=== PATIENT | female | born 1980 | race Caucasian/White ===

== ENCOUNTER 2017-04-16 12:11 | Emergency (ER) | payer MEDICAID ==
[2017-04-16 12:23] VITALS: BP 140/82
[2017-04-16] MEDS ORDERED: Ketorolac 60 MG/2 ML SDV IM ONE (12:47)
--- NOTE | 2017-04-16 12:58 | EDM.PDOC ---
ED HPI GENERAL MEDICAL PROBLEM - General Chief Complaint: Back Pain or Injury Stated Complaint: BACK PAIN Time Seen by Provider: 04/16/17 12:34 Source of Information: Reports: Patient History Limitations: Reports: No Limitations - History of Present Illness INITIAL COMMENTS - FREE TEXT/NARRATIVE: Patient is a 36-year-old female who presents to the ED complaining of upper back discomfort. States she was attempting to move a heavy bed and developed muscle pain with the strenuous activity. Over the course of the weekend discomfort has worsened. She has been utilizing BenGay, Tylenol, hot showers, and Aleve with minimal relief. Patient states today while at work with bending over, twisting, moving, and lifting pain has worsened. Pain is localized with no radiation. She has no history of back injury. She offers no additional complaints. 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 Denies: Neck Pain Neurological: Denies: Headache, Numbness, Tingling ED EXAM, UPPER BACK/NECK PAIN - Physical Exam Exam: See Below Exam Limited By: No Limitations General Appearance: Alert, WD/WN, No Apparent Distress Ears Exam: Hearing Grossly Normal Nose Exam: Normal Inspection Throat/Mouth Exam: Normal Voice, No Airway Compromise Head Exam: Atraumatic, Normocephalic Neck Exam: Non-Tender, Full Range of Motion, Normal Alignment, Normal Inspection Cardiovascular/Respiratory: Regular Rate, Rhythm, No M/R/G, Normal Peripheral Pulses, Normal Breath Sounds, No Respiratory Distress Back Exam: Normal Inspection, Full Range of Motion, Paraspinal Tenderness ( thoracic spine bilaterally, muscles are tense painful with palpation. no swelling, ecchymosis, or asymetry noted. ). 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, No Motor/Sensory Deficits, Normal Mood/ Affect, Oriented x 3 Psychiatric: Normal Affect, Normal Mood Skin Exam: Normal Color, Warm/Dry Course - Vital Signs Last Recorded V/S: Last Vital Signs Temp 98.1 F 04/16/17 12:22 Pulse 129 H 04/16/17 12:22 Resp 20 04/16/17 12:22 BP 140/82 04/16/17 12:22 Pulse Ox 99 04/16/17 12:22 - Orders/Labs/Meds Meds: Medications Discontinued Medications Generic Name Dose Route Start Last Admin Trade Name Terry PRN Reason Stop Dose Admin Ketorolac Tromethamine 60 mg 04/16/17 12:47 04/16/17 13:05 Toradol IM 04/16/17 12:48 60 mg ONETIME ONE Administration - Re-Assessments/Exams Free Text/Narrative Re-Assessment/Exam: Patient strained the upper back muscles with moving the heavy head. Patient did drive herself to the ED. Thus ordered Toradol 60 mg IM. Will discharge patient home with instructions and a prescription for Norflex. Departure - Departure Time of Disposition: 12:58 Disposition: Home, Self-Care 01 Condition: Good Clinical Impression: Acute upper back pain - Discharge Information Prescriptions: Orphenadrine [Norflex] 100 mg PO BID PRN #14 tab.er PRN Reason: Muscle Spasm Instructions: Muscle Strain, [id number], Back Pain, Adult, [id number] Referrals: Jeanna Ellison NP [Primary Care Provider] - Forms: ED Department Discharge, ED Return to Work/School Form Additional Instructions: As discussed you strained the muscles to the upper back. Treatment is symptomatic care including: Warm compresses to affected area with gentle massage , Tylenol and ibuprofen in alternating fashion for pain. Take Norflex 100 mg twice a day as needed for muscle spasms. Follow-up with your PCP as needed. Return to the ED for any new or worsening symptoms. Refrain from any activities that cause worsening pain.
== END 2017-04-16 13:05 | disposition home or self-care (01) ==
LOC: JD.ED 12:11
DX: M54.6 Pain in thoracic spine (principal); I10 Essential (primary) hypertension; F17.210 Nicotine dependence, cigarettes, uncomplicated; E11.9 Type 2 diabetes mellitus without complications; Z79.84 Long term (current) use of oral hypoglycemic drugs; Z79.899 Other long term (current) drug therapy
CPT/HCPCS: 96372; 99283; J1885